=== PATIENT | female | born 1940 | race Caucasian/White ===

== ENCOUNTER 2016-11-01 10:51 | Observation (INO) | payer OTHER ==
--- NOTE | 2016-11-01 11:54 | EDPHY ---
H & P Time Seen by Provider: 11/01/16 11:54 HPI/ROS: Chief complaint. Rule out meningitis HPI. Patient is a 75-year-old female referred from [place]. The about 1 week ago she started having neck pain after looking down reading a book for most of the day. Her neck pain was on the right side of her neck. She had no focus weakness or paresthesias. She had no headache or fever. She went to [facility] and they found the patient had a sodium of a about 115. She has been in the hospital the past 3 days and sodium has improved. She has had a negative head CT. MRI of her neck shows extensive DJD. Today she had a chest CT which showed no evidence of pulmonary embolus. She tells me she has had some unusual shortness of breath and cough but no fever. Apparently she had a urinary tract infection there as well. ROS Constitutional. Generalized weakness Eyes. no problems with vision ENT. no sore throat, no nasal drainage Cardiovascular. no chest pain Respiratory. Shortness of breath and cough Abdominal. no abdominal pain, no nausea/vomiting, no diarrhea . no problems urinating MS. no calf pain/swelling, no neck/back pain, no joint pain Skin. no rash Lymph. no swollen glands Neuro. Difficulty walking secondary to her shortness of breath Past Medical/Surgical History: Past medical history is significant for hypertension, hypothyroid hysterectomy, elbow surgery Social History: , nonsmoker, no alcohol Smoking Status: Never smoked Physical Exam: General Appearance: Alert well-developed female mild distress vital signs are stable Eyes: Pupils equal and round no pallor or injection. ENT, Mouth: Mucous membranes are moist. Respiratory: No retractions. Rales left lower lung base Cardiovascular: Regular rate and rhythm. Gastrointestinal: Abdomen is soft and nontender, no masses, bowel sounds normal. Neurological: Awake and alert, sensory and motor exams grossly normal. Skin: Warm and dry, no rashes. Musculoskeletal: Neck is supple with slight tenderness to the right paracervical muscles. No meningismus. Extremities symmetrical, full range of motion. Psychiatric: Patient is oriented X 3, there is no agitation. Constitutional: Initial Vital Signs Temperature (C) 36.7 C 11/01/16 10:51 Heart Rate 98 11/01/16 10:51 Respiratory Rate 18 11/01/16 10:51 Blood Pressure 175/93 H 11/01/16 10:51 O2 Sat (%) 93 11/01/16 10:51 O2 Delivery Mode Room Air O2 (L/minute) 2 Allergies/Adverse Reactions: codeine Allergy (Verified 11/01/16 13:57) Sulfa (Sulfonamide Antibiotics) Allergy (Verified 11/01/16 13:57) Medical Decision Making - Diagnostics EKG Interpretation: EKG interpreted by me shows normal sinus rhythm with normal interval and left axis deviation. There is also LVH by voltage. No significant ST elevation or depression. No arrhythmia. The rate is 83 Imaging Results: Imaging Impressions Chest X-Ray 11/01/16 12:11 Impression: 1. Left lower lobe pneumonia. 2. Small bilateral pleural effusions. 3. Recommend follow up until clear. Chest x-ray interpreted by me shows a left lower lobe pneumonia with small pleural effusions bilateral Procedures: IV Rocephin, Zithromax ED Course/Re-evaluation: Patient's sodium has improved to 134. Patient is found to have pneumonia. Patient and I discussed treatment plan including recommendation for admission. She expresses understanding and agreement I have consulted and discussed case with Dr. Miller, hospitalist, who will see the patient in the emergency department Patient has had septic workup with negative lactate. Her cultures have been obtained and following cultures she is given intravenous antibiotics. Differential Diagnosis: Patient has no symptoms or signs of meningitis. She has pneumonia which goes along with her shortness of breath and cough. We have not yet obtained a urine sample from her. Her hyponatremia has improved This would appear to be a community-acquired pneumonia - Data Points Laboratory Results: Laboratory Results 11/01/16 12:45 11/01/16 11:50 11/01/16 11/01/16 11/01/16 14:00 12:45 12:45 WBC 15.78 10^3/uL H 10^3/uL (3.80-9.50) RBC 3.95 10^6/uL L 10^6/uL (4.18-5.33) Hgb 11.9 g/dL L g/dL (12.6-16.3) Hct 34.4 % L % (38.0-47.0) MCV 87.1 fL fL (81.5-99.8) MCH 30.1 pg pg (27.9-34.1) MCHC 34.6 g/dL g/dL (32.4-36.7) RDW 13.3 % % (11.5-15.2) Plt Count 332 10^3/uL 10^3/uL (150-400) MPV 9.9 fL fL (8.7-11.7) Neut % (Auto) 91.6 % H % (39.3-74.2) Lymph % (Auto) 6.2 % L % (15.0-45.0) [place] % (Auto) 1.3 % L % (4.5-13.0) Eos % (Auto) 0.0 % L % (0.6-7.6) Baso % (Auto) 0.1 % L % (0.3-1.7) Nucleat RBC Rel Count 0.0 % % (0.0-0.2) Absolute Neuts (auto) 14.45 10^3/uL H 10^3/uL (1.70-6.50) Absolute Lymphs (auto) 0.98 10^3/uL L 10^3/uL (1.00-3.00) Absolute Monos (auto) 0.21 10^3/uL L 10^3/uL (0.30-0.80) Absolute Eos (auto) 0.00 10^3/uL L 10^3/uL (0.03-0.40) Absolute Basos (auto) 0.01 10^3/uL L 10^3/uL (0.02-0.10) Absolute Nucleated RBC 0.00 10^3/uL 10^3/uL (0-0.01) Immature Gran % 0.8 % % (0.0-1.1) Immature Gran # 0.13 10^3/uL H 10^3/uL (0.00-0.10) PT 13.4 SEC SEC (12.0-15.0) INR 1.03 (0.83-1.16) APTT 21.9 SEC L SEC (23.0-38.0) VBG Lactic Acid Sodium Potassium Chloride Carbon Dioxide Anion Gap BUN Creatinine Estimated GFR Glucose Calcium Total Bilirubin Troponin I NT-Pro-B Natriuret Pep Urine Color Pending Urine Appearance Pending Urine pH Pending Ur Specific [place] Pending Urine Protein Pending Urine Ketones Pending Urine Blood Pending Urine Nitrate Pending Urine Bilirubin Pending Urine Urobilinogen Pending Ur Leukocyte Esterase Pending Urine Glucose Pending 11/01/16 11/01/16 12:45 11:50 WBC RBC Hgb Hct MCV MCH MCHC RDW Plt Count MPV Neut % (Auto) Lymph % (Auto) [place] % (Auto) Eos % (Auto) Baso % (Auto) Nucleat RBC Rel Count Absolute Neuts (auto) Absolute Lymphs (auto) Absolute Monos (auto) Absolute Eos (auto) Absolute Basos (auto) Absolute Nucleated RBC Immature Gran % Immature Gran # PT INR APTT VBG Lactic Acid 1.3 mmol/L mmol/L (0.7-2.1) Sodium 133 mEq/L L mEq/L (134-144) Potassium 3.6 mEq/L mEq/L (3.5-5.2) Chloride 101 mEq/L mEq/L (97-110) Carbon Dioxide 21 mEq/l L mEq/l (22-31) Anion Gap 11 mEq/L mEq/L (8-16) BUN 9 mg/dL mg/dL (7-23) Creatinine 0.7 mg/dL mg/dL (0.6-1.0) Estimated GFR > 60 Glucose 131 mg/dL H mg/dL (70-100) Calcium 9.2 mg/dL mg/dL (8.5-10.4) Total Bilirubin 0.7 mg/dL mg/dL (0.1-1.4) Troponin I < 0.012 ng/mL ng/mL (0-0.034) NT-Pro-B Natriuret Pep 2620 pg/mL H pg/mL (0-450) Urine Color Urine Appearance Urine pH Ur Specific [place] Urine Protein Urine Ketones Urine Blood Urine Nitrate Urine Bilirubin Urine Urobilinogen Ur Leukocyte Esterase Urine Glucose Departure - Departure Disposition: [facility] Acute Clinical Impression: Pneumonia Qualifiers: Pneumonia type: due to unspecified organism Laterality: left Lung location: lower lobe of lung Qualified Code(s): J18.1 - Lobar pneumonia, unspecified organism Condition: Fair Referrals: Patient,NotPresent [Unknown] - As per Instructions
[2016-11-01 13:03] LABS: % IMMATURE GRANULYOCYTES 0.8 % (0.0-1.1); ABSOLUTE IMMATURE GRANULOCYTES 0.13 10^3/uL (0.00-0.10); ADD DIFF? NO; ADD MORPH? NO; ADD SCAN? NO; ATYPICAL LYMPHOCYTE FLAG 0 (0-99); FRAGMENT RBC FLAG 0 (0-99); HEMATOCRIT 34.4 % (38.0-47.0); HEMOGLOBIN 11.9 g/dL (12.6-16.3); LEFT SHIFT FLG 10 (0-99); LIPEMIA HEMOLYSIS FLAG 90 (0-99); MEAN CELL HEMOGLOBIN 30.1 pg (27.9-34.1); MEAN CELL HEMOGLOBIN CONCENTR. 34.6 g/dL (32.4-36.7); MEAN CELL VOLUME 87.1 fL (81.5-99.8); MEAN PLATELET VOLUME 9.9 fL (8.7-11.7); PLATELET CLUMPS FLAG 0 (0-99); PLATELET COUNT 332 10^3/uL (150-400); RED BLOOD CELL COUNT 3.95 10^6/uL (4.18-5.33); RED CELL DISTRIBUTION WIDTH 13.3 % (11.5-15.2)
[2016-11-01 13:13] LABS: INR 1.03 (0.83-1.16); PROTIME(PATIENT) 13.4 SEC (12.0-15.0)
[2016-11-01 13:14] LABS: APTT 21.9 SEC (23.0-38.0)
[2016-11-01 13:22] LABS: ANION GAP 11 mEq/L (8-16); BILIRUBIN,TOTAL 0.7 mg/dL (0.1-1.4); CALCIUM 9.2 mg/dL (8.5-10.4); CARBON DIOXIDE 21 mEq/l (22-31); CHLORIDE 101 mEq/L (97-110); CREATININE 0.7 mg/dL (0.6-1.0); GLOMERULAR FILTRATION RATE > 60; GLUCOSE 131 mg/dL (70-100); POTASSIUM 3.6 mEq/L (3.5-5.2); SODIUM 133 mEq/L (134-144)
--- NOTE | 2016-11-01 13:23 | CPEKG ---
Heart Rate: 83 RR Interval: 723 P-R Interval: 144 QRSD Interval: 100 QT Interval: 376 QTC Interval: 442 P [place]: 66 QRS [place]: -44 T Wave [place]: 37 EKG Severity - ABNORMAL ECG - EKG Impression: SINUS RHYTHM EKG Impression: LEFT AXIS DEVIATION EKG Impression: LEFT VENTRICULAR HYPERTROPHY Electronically Signed By: Kali Peck 01-Nov-2016 16:02:09
[2016-11-01 13:34] LABS: TROPONIN I < 0.012 ng/mL (0-0.034)
[2016-11-01] MEDS ORDERED: AZITHROMYCIN IV 500 MG in D5W 250 ML IV ONE (13:58)
[2016-11-01] MEDS ORDERED: IBUPROFEN 600 MG TAB PO ONE (14:15)
[2016-11-01 14:36] LABS: COLOR YELLOW; LEUKOCYTE ESTERASE,URINE NEGATIVE (NEGATIVE); NITRITE,URINE NEGATIVE (NEGATIVE)
[2016-11-01 14:38] LABS: MUCUS TRACE /lpf (NONE-1+)
[2016-11-01] MEDS ORDERED: ONDANSETRON 4 MG/2 ML VIAL IVP PRN (17:05)
[2016-11-01] MEDS ORDERED: ONDANSETRON DISINTEGRATING 4 MG TAB PO PRN (17:05)
[2016-11-01] MEDS ORDERED: oxyCODONE IR 5 MG TAB PO PRN (17:05)
[2016-11-01] MEDS ORDERED: ACETAMINOPHEN 325 MG TAB PO PRN (17:05)
[2016-11-01] MEDS ORDERED: FUROSEMIDE 20 MG/2 ML VIAL IVP ONE (17:09)
[2016-11-01] MEDS ORDERED: hydrALAZINE 10 MG TAB PO PRN (17:12)
[2016-11-01] MEDS: LISINOPRIL 5 MG TAB PO SCH (17:54)
--- NOTE | 2016-11-01 18:44 | GHP ---
[f rep st] HISTORY AND PHYSICAL DATE OF ADMISSION: 11/01/2016 CHIEF COMPLAINT: Neck pain. HISTORY OF PRESENT ILLNESS: The patient is a 75-year-old female with a history of hypothyroidism, h yperlipidemia, and lower extremity edema, who presents to the Emergency Department as a transfer fro [facility] due to uncontrolled neck pain. She was initially evaluated by her outpa tient primary care physician at [place], and was noted to have ataxia. Labs revealed hyponatremi a with a sodium of 115, and she was admitted to the hospital. Her sodium was corrected to 133 over the past several days, and her gait disturbance has resolved. MRI was obtained to further assess he r neck pain, and revealed multilevel cervical spondylosis with severe right foraminal stenosis at C4 through C6. She required multiple doses of IV opioids for pain control. There was initially some consideration of meningitis, though per review of records in [place] there has been no meningismu s, no fevers, no significant headaches. She did receive quite a bit of IV fluids per the report of the attending physician at [place], as they were aggressively treating her low sodium with IV flu ids. She then desatted to 88% on room air prior to transfer, and a CT pulmonary angiogram was obtai marie, which was negative for pulmonary embolism. It did, however, show bilateral pleural effusions a nd some scattered ground-glass opacities. Given ongoing neck pain, she is transferred to [facility] for further evaluation and consideration of neurosurgical consultation[facility]-ray was suggestive of a left lower lobe pneumonia. She received ceftriax one and azithromycin, is admitted to the hospital for further management. The patient denies any fevers, cough, shortness of breath, chest pain, or abdominal symptoms. She d id report some urinary frequency last week, and in [place] she was diagnosed with urinary tract i nfection and treated with 3 days of IV Zosyn. Her urinary symptoms have completely resolved. She h as had no nausea or vomiting. She denies any headache. Although she has neck pain, she denies neck stiffness. She also reports a history of lower extremity edema. She vaguely endorses orthopnea, b ut denies paroxysmal nocturnal dyspnea. PAST MEDICAL HISTORY: 1. Hyperlipidemia. 2. Hypothyroidism. 3. Bilateral lower extremity edema. 4. Elevated blood pressure. 5. Degenerative disk disease of the cervical spine. PAST SURGICAL HISTORY: 1. Cataract surgery. 2. Tonsillectomy. 3. Total abdominal hysterectomy. FAMILY HISTORY: Her mom had COPD. Her father had colon cancer. Her brother has a history of hyper lipidemia and some type of heart problem. SOCIAL HISTORY: The patient is . They live in [place] part of the year, and spend their sum mers in [place]. She is a lifetime nonsmoker. She denies regular alcohol use. REVIEW OF SYSTEMS: A 10-point review of systems was performed and is negative except as per HPI. OBJECTIVE: VITAL SIGNS: Temperature is 36.6, blood pressure 180/87, heart rate 85, respiratory rat e 15, she is 95% on 2 L of oxygen. GENERAL: The patient is awake, alert, oriented, in no acute dis tress. HEENT: Head is atraumatic, normocephalic. Pupils equal, round, and reactive to light. Ext raocular muscles are intact. Conjunctiva are pink. Oropharynx is clear. Mucous membranes are mois t. NECK: Supple. Mild JVD is appreciated. No meningismus. HEART: Regular rate and rhythm witho ut murmur. LUNGS: Diminished at the bases bilaterally. Otherwise, clear to auscultation without c rackles, rales, or rhonchi. ABDOMEN: Soft, nondistended, nontender with normoactive bowel sounds. EXTREMITIES: Without cyanosis, clubbing. There is trace to 1+ bilateral lower extremity ankle darren ma. NEUROLOGIC: Grossly nonfocal. LABORATORY DATA: CBC reveals a white blood cell count of 15.8, hemoglobin 11.9, hematocrit 34.4. T here is 91.6% neutrophils INR is 1.03, lactic acid is 1.3. Complete metabolic panel is remarkable f or sodium of 133, a bicarb of 21, glucose 131. Her troponin is negative. NT proBNP is 2,620. Urin alysis shows a specific gravity greater than 1.035, trace ketones, 10-15 red cells, negative for nit rates or bacteria. DIAGNOSTIC STUDIES: EKG shows normal sinus rhythm without ST-segment or T-wave changes concerning f or ischemia. She does meet criteria for left ventricular hypertrophy. Chest x-ray in the Emergency Department here is personally reviewed and interpreted. There was some haziness over the left lower diaphragm, and is read by the radiologist as a left lower lobe pneumon ia, with small bilateral pleural effusions. I also reviewed the CT pulmonary angiogram with our rad iologist here, which was sent on CD. She does have bilateral pleural effusions with some scattered ground-glass opacities, which could be fluid. A cervical spine MRI performed at [facility] showed multilevel cervical spondylosis w ith severe right foraminal stenosis at C4 through C6, and mild spinal canal stenosis at multiple cer vical levels. ASSESSMENT/PLAN: The patient is a 75-year-old female, who is transferred to [facility] from [facility] for ongoing neck pain and concern for new onset hypoxemia. 1. Neck pain. I have low suspicion for meningitis. Although she has a leukocytosis, this is likel y related to the IV Solu-Medrol she has received for the past couple of days at [place]. She has remained afebrile throughout her hospitalization. She has no meningismus, no headaches, and overal l appears nontoxic. Blood cultures are pending. I suspect her neck pain is a result of her MRI fin [facility] with multilevel cervical spondylosis, and she is transferred here for this issue. Therefore, we will request a neurosurgical consultation, and I have asked Dr. Bolaños to see the patient in the [facility]. In the meantime, we will plan for pain control with Tylenol, ibuprofen, and p.r.n. oxycodon e as needed. We will also provide a muscle relaxer as needed, as well as heat if this is helpful. PT/OT consults are requested. 2. Acute hypoxemic respiratory failure secondary to bilateral pleural effusions. She was diagnosed and treated for pneumonia in the Emergency Department. However, I do not feel she has a pneumonia. She has no clinical symptoms such as fever, cough, chest pain, or shortness of breath. I reviewed her CT imaging and again looked at her chest x-ray with our radiologist, and this is more likely to be fluid. Specifically, I suspect she is a bit volume overloaded after aggressive IV fluids given in [place]. She does have an elevated BNP, as well as some mild lower extremity edema. We will check an echocardiogram. I will give her some IV Lasix right now. I do not see any indication for antibiotics at this time, so we will defer unless she develops more localized symptoms. At this poi nt, there is no indication for thoracentesis. 3. Leukocytosis. As above, I suspect this is secondary to steroids, as there is no evidence for on going infection. She was recently treated for urinary tract infection. The urine culture in [place] grew greater than 100,000 E. coli, which was pansensitive. She has received 3 days of Zosyn. Given her minimal symptoms prior to treatment at this point, I think 3 days is likely adequate espec ially in the setting of a negative urinalysis. 4. Elevated blood pressure. The patient was previously on hydrochlorothiazide, though we will hold this given her recent history of hyponatremia. For now, we will order low-dose lisinopril and up t itrate as necessary, as well as p.r.n. hydralazine for blood pressure control. Given her findings o f left ventricular hypertrophy on her EKG, we will proceed with echocardiogram as above. 5. Hyperlipidemia. We will continue her statin. 6. Hypothyroidism. We will continue her levothyroxine. 7. Deep venous thrombosis prophylaxis, Lovenox. 8. Code status. The patient is full code. 9. Disposition. The patient is moved to observation status. Should she require ongoing workup for hospitalization depending on her status tomorrow, we can change her to inpatient if needed. /[id number]/MODL
[2016-11-01] MEDS ORDERED: PRAVASTATIN SODIUM 40 MG TAB PO SCH (21:00)
[2016-11-01] MEDS: IBUPROFEN 600 MG TAB PO PRN (21:39)
[2016-11-01] MEDS: METHOCARBAMOL 750 MG TAB PO PRN (21:39)
[2016-11-02] MEDS: IBUPROFEN 600 MG TAB PO PRN ×2 (03:38→15:15)
[2016-11-02] MEDS: METHOCARBAMOL 750 MG TAB PO PRN ×2 (03:38→15:15)
[2016-11-02 05:07] LABS: % IMMATURE GRANULYOCYTES 0.8 % (0.0-1.1); ABSOLUTE IMMATURE GRANULOCYTES 0.12 10^3/uL (0.00-0.10); ADD DIFF? NO; ADD MORPH? NO; ADD SCAN? NO; ATYPICAL LYMPHOCYTE FLAG 0 (0-99); FRAGMENT RBC FLAG 0 (0-99); HEMATOCRIT 28.7 % (38.0-47.0); HEMOGLOBIN 10.1 g/dL (12.6-16.3); LEFT SHIFT FLG 10 (0-99); LIPEMIA HEMOLYSIS FLAG 90 (0-99); MEAN CELL HEMOGLOBIN 30.4 pg (27.9-34.1); MEAN CELL HEMOGLOBIN CONCENTR. 35.2 g/dL (32.4-36.7); MEAN CELL VOLUME 86.4 fL (81.5-99.8); MEAN PLATELET VOLUME 9.7 fL (8.7-11.7); PLATELET CLUMPS FLAG 0 (0-99); PLATELET COUNT 313 10^3/uL (150-400); RED BLOOD CELL COUNT 3.32 10^6/uL (4.18-5.33); RED CELL DISTRIBUTION WIDTH 13.4 % (11.5-15.2)
[2016-11-02 05:30] LABS: ANION GAP 8 mEq/L (8-16); CALCIUM 8.8 mg/dL (8.5-10.4); CARBON DIOXIDE 23 mEq/l (22-31); CHLORIDE 101 mEq/L (97-110); CREATININE 0.9 mg/dL (0.6-1.0); GLOMERULAR FILTRATION RATE > 60; GLUCOSE 122 mg/dL (70-100); POTASSIUM 3.5 mEq/L (3.5-5.2); SODIUM 132 mEq/L (134-144)
[2016-11-02] MEDS ORDERED: LEVOTHYROXINE 50 MCG TAB PO SCH (06:00)
[2016-11-02 07:40] VITALS: PULSE 84
--- NOTE | 2016-11-02 08:31 | GCON ---
[f rep st] CONSULTATION NEUROSURGERY CONSULT. DATE OF CONSULTATION: 11/01/2016 Patient was seen evaluated on the general care floor at [facility] approximately 7:3 0 p.m., on 11/01/2016. HISTORY OF PRESENT ILLNESS: The patient is a 75-year-old lady with a history of hypothyroidism, hyp erlipidemia, lower extremity edema, who presented as a transfer from [facility] due t o uncontrolled neck pain. She apparently developed this pain last evening when she was [employer] [place] and says she gets this kind of pain periodically but they usually resolve with some Tylenol or aspirin. The pain is only in her neck, radiates up to the skull and down to the trapezius. She has no pain at all in the arms. The pain is worse with palpation and with flexion-extension. She has no other neurologic symptoms. Of note, she also had extreme hyponatremia down to 115, which has bee n corrected to 133 recently. She supposedly had an MRI done [place] which shows severe right for aminal stenosis C4 through 6, and she had multiple doses of opioids for pain control. That MRI scan was supposedly sent here on a disc however it is nowhere to be found, when I came to see her on the floor, presumably has been sent to Radiology. Otherwise, she has no other significant complaints a t this time. REVIEW OF SYSTEMS: A 10-point review of systems is negative other than that described above in HPI. PAST MEDICAL HISTORY: 1. Hyperlipidemia. 2. Hypothyroidism. 3. Bilateral lower extremity edema. 4. Hypertension. 5. Degenerative disk disease of the cervical spine. PAST SURGICAL HISTORY: 1. Cataracts. 2. Tonsillectomy. 3. Total abdominal hysterectomy. FAMILY HISTORY: Positive for COPD in her mother and colon cancer in her father, but negative for sp ine problems. SOCIAL HISTORY: The patient is . They summer in [place] and are from [place]. She is a lifelong nonsmoker. Denies any alcohol or other drug use. ALLERGIES: No known drug allergies. MEDICATIONS: Her home medications were reviewed in the electronic medical record. I have no additi ons at this time. PHYSICAL EXAM: VITAL SIGNS: Currently she is afebrile with normal stable vital signs. GENERAL: S he is awake, alert, and oriented x3. NEURO: Her cranial nerves 2-12 are grossly normal. She has f ull 5/5 strength of the deltoid biceps, triceps, wrist flexion, extension, and finger abduction. Sh e also has full 5/5 strength in all muscle groups of the lower extremities. Her sensation is comple tely normal. Deep tendon reflexes are normal. She has no Vázquez's or Babinski and no clonus. She has pain to palpation over the paraspinous muscles of the cervical spine but no significant signs o f any radiculopathy. IMAGING REVIEW: I searched for her MRI scan but the disk was nowhere to be found, presumably has be en sent to Radiology. We will look for this in the morning. RESULTS REVIEW: White count is 15.78, hemoglobin 11.9, hematocrit is 34.4, platelet count is 332,00 0. INR is 1.03, PTT 21.9. Sodium is 133, potassium 3.6, BUN is 9, creatinine is 0.7, glucose 131. ASSESSMENT AND PLAN: The patient is a 75-year-old woman who presents with multiple medical problems , as well as neck pain. As far as I can tell, based on her physical exam, this seems to be a muscul oskeletal problem and she has pain with palpation of the paraspinous muscles, a lot of tightness in the paraspinous muscles. This could be treated easily with nonsteroidal anti-inflammatories, such a s Toradol or high-dose ibuprofen, as well as muscle relaxants and physical therapy. We will certain ly look at her MRI scan once it is available but given that she has no radicular symptoms or signs o f cord compression, there is likely no role for surgery and she tells me that she is certainly not i nterested in any kind of surgery at this moment. If her MRI does show significant facet disease she might be a candidate for facet injections to see if this would assist with her pain but really with palpation most of this appears to be muscular. I discussed this at length with the patient and we will follow up on her MRI scan tomorrow but likely no need for neurosurgical intervention or further care at this time. We will leave further recommendations after we see the MRI scan. Thanks for the kind consultation. /[id number]/MODL
--- NOTE | 2016-11-02 08:34 | NEUSURGPN ---
Assessment/Plan: Isha is a 75y/o female who was transferred to [facility] and reported low back pain. She underwent an MRI of her lower back, but unfortuantely these images are not available to review at this time. Patient this morning stated her back is doing well adn she had the best night sleep she has had in months. She denies any new leg pain, numbness, tingling or weakness. Based on her clinic course her back pain may be muscular in nature. Recommend PT /OT as tolerated. At this point there is no acute neurosurgical recommendations. When her images become available, please notify NS. Discussed with Dr. Bolaños. Subjective: Back pain improved today. No leg pain Objective: NAD A&OX3 MAEx4 09/14 and equal in BUE and BLE. - Physician Discussed Patient with Dr.: Bolaños Neurosurgery Physical Exam - Vitals, I&O, Labs I and O 11/01/16 11/02/16 11/03/16 05:59 05:59 05:59 Intake Total 610 Output Total 800 Balance -190 Weight 67.132 kg Intake: Oral (ml) 560 IV Infused (ml) 50 Output: Urine (ml) 800 Toilet 800 Other: Number of Voids Toilet 1 Vital Signs Temp Pulse Resp BP Pulse Ox 36.8 C 84 16 144/77 H 93 11/02/16 07:40 11/02/16 07:40 11/02/16 07:40 11/02/16 07:40 11/02/16 07:40 Laboratory Results 11/02/16 04:52 11/02/16 04:52 ICD10 Worksheet Patient Problems: Problems Problem Status Onset Pneumonia Acute
[2016-11-02] MEDS ORDERED: PANTOPRAZOLE SODIUM 40 MG TAB PO PRN (09:00)
[2016-11-02] MEDS ORDERED: ASPIRIN 81 MG CHEWABLE TAB PO SCH (09:00)
[2016-11-02] MEDS ORDERED: ENOXAPARIN 40 MG/0.4 ML SYR SC SCH (09:00)
[2016-11-02] MEDS ORDERED: CETIRIZINE 10 MG TAB PO PRN (09:00)
[2016-11-02] MEDS ORDERED: FUROSEMIDE 40 MG/4 ML VIAL IVP ONE (09:01)
[2016-11-02] MEDS ORDERED: BENEFIBER/NUTRISOURCE FIBER PKT 1 EACH PO SCH (09:15)
[2016-11-02] MEDS: LISINOPRIL 5 MG TAB PO SCH (10:10)
--- NOTE | 2016-11-02 10:24 | ECHO ---
[id number] + + [id number] : : [place] [id number] : : [phone] + + Adult Echocardiographic Report + ------+ :Name: Albert GEORGESpatricia Date: 11/02/2016 08:17 AM : : Hospital Admission Number: [id number] Locatio n: 354: :: 1940 Gender: Female Height: 62 in : :Age: 75 yrs Race: WH Weight: 148 lb : :Reason For Study: Eval LV Fx : : BSA: 1.7 meters 2 : :History: L/L pleural effusions, Elevated BNP : + ------+ MMode/2D Measurements \T\ Calculations IVSd: 0.88 cm LVIDd: 3.8 cm FS: 43.5 % MV Diam: 3.0 cm LVPWd: 1.1 cm LVIDs: 2.1 cm EDV(Teich): 62.1 ml ESV(Teich): 15.2 ml EF(Teich): 75.4 % Ao root diam: 2.7 cm LVOT diam: 1.8 cm ACS: 1.6 cm LVOT area: 2.5 cm2 Normal Measurement Values: + + :LVIDd (3.5-5.7cm) IVSd (0.6-1.1cm) LVPWd (0.6-1.1cm) Aortic Root (2.0-3.7cm)Left Atrium (1.5-4.0cm): :LV Vol(d) (76-115ml) LV Vol(s) (29-48ml) Ejec Fraction (50-65%)PV Trever (0.6- 1.2m/s) TV Trever (0.4-1.0m/s) : :MV E Trever (0.8-1.0m/s)MV A Trever (0.3-1.0m/s)LVOT Trever (0.7-1.2m/s) Asc Ao Trever ( 0.9-1.8m/s) : + + Doppler Measurements \T\ Calculations MV E max trever: MV V2 max: Ao mean PG: LV V1 mean P.9 cm/sec 105.9 cm/sec 2.4 mmHg 1.3 mmHg MV A max trever: MV max P.5 mmHg Ao V2 mean: LV V1 mean: 90.8 cm/sec MV V2 mean: 73.9 cm/sec 52.5 cm/sec MV E/A: 0.92 69.6 cm/sec Ao V2 VTI: 23.4 cm LV V1 VTI: MV mean P.2 mmHg 21.4 cm MV V2 VTI: 28.2 cm SOPHY(I,D): 2.3 cm2 MV area (1 diam): 7.0 cm2 MVA(VTI): 1.9 cm2 MV Flow area(1diam): 7.0 cm2 MR max trever: MR(RF 1 diam): SV(MV 1 diam): PA V2 max: 620.4 cm/sec 16.5 % 196.1 ml 80.1 cm/sec MR max PG: SI(MV 1 diam): PA max P.1 mmHg 2.6 mmHg 116.6 ml/m2 SV(LVOT): 54.5 ml TR max trever: RF(MV,Ao)(1 diam): 302.4 cm/sec 0.29 TR max PG: RF(MV,LVOT)(1diam): 36.6 mmHg 0.72 RAP systole: 5.0 mmHg RVSP(TR): 41.6 mmHg Left Ventricle The left ventricle is normal in size. There is normal left ventricular wall thickness. The left ventricular ejection fraction is normal. There is Doppler evidence for diastolic dysfunction. Ejection Fraction = 75%. The left ventricular wall motion is normal. Right Ventricle The right ventricle is normal in size and function. Atria The left atrial size is normal. Right atrial size is normal. Mitral Valve There is mild mitral annular calcification. There is no evidence of mitral valve prolapse. There is no mitral valve stenosis. There is moderate mitral regurgitation. Tricuspid Valve Normal tricuspid valve. There is mild tricuspid regurgitation. Right ventricular systolic pressure is 41mmHg. There is Doppler evidence for mild pulmonary hypertension. Aortic Valve The aortic valve is normal in structure and function. The aortic valve is trileaflet. There is no aortic stenosis. There is no aortic insufficiency. Pulmonic Valve The pulmonic valve is normal in structure and function. There is no pulmonic valvular regurgitation. Great Vessels The aortic root is normal size. Pericardium/Pleural There is no pericardial effusion. Conclusion A complete two-dimensional transthoracic echocardiogram was performed (2D, M-mode, Doppler and color flow Doppler). The left ventricular ejection fraction is normal. There is Doppler evidence for diastolic dysfunction. Ejection Fraction = 75%. The left ventricular wall motion is normal. The right ventricle is normal in size and function. The left atrial size is normal. There is mild mitral annular calcification. There is moderate mitral regurgitation. There is mild tricuspid regurgitation. Right ventricular systolic pressure is 41mmHg. There is Doppler evidence for mild pulmonary hypertension. The aortic valve is normal in structure and function. The aortic valve is trileaflet. There is no pericardial effusion. Final Reading Physician: Meredith Ferrari signed on 11/02/2016 10:24 AM Ordering Physician: Page Langley Performed By: Darrell Dueñas, CS
[2016-11-02 12:10] VITALS: BP 150/67; RESP 18; TEMP 98.7; O2SAT 94
--- NOTE | 2016-11-02 20:32 | GDS ---
[f rep st] DISCHARGE SUMMARY DISCHARGE DIAGNOSES: 1. Neck pain, which is musculoskeletal in origin. 2. Hypoxemia secondary to bilateral pleural effusions. 3. Diastolic heart failure. 4. Mitral valve regurgitation. 5. Leukocytosis secondary to IV Solu-Medrol. 6. Hypertension. 7. Hyperlipidemia. 8. Hypothyroidism. CONSULTANTS: Jah Bolaños MD, Neurosurgery IMAGING/PROCEDURES: 1. Chest x-ray showed small bilateral pleural effusions. 2. Echocardiogram showed normal ejection fraction of 75%. There was Doppler evidence for diastolic dysfunction and moderate mitral regurgitation was noted. HISTORY: For details, please see dictated History and Physical dated November 01, 2016. 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 Evaluation in the emergency department was suggestive of pneumonia. H owever, she was afebrile, has no cough or other pneumonia symptoms. She was admitted to the [facility] for further evaluation of her neck pain and management of her hypoxemia related to her bilateral p leural effusions. HOSPITAL COURSE: The patient was admitted to the medical-surgical unit. Neurosurgery consult was o btained. They reviewed her neck MRI. She had no radicular findings on exam and furthermore, her ex am is consistent with a musculoskeletal source of her neck pain. No surgical intervention was recom mended by Neurosurgery. Rather, she can be treated with anti-inflammatories, muscle relaxers and he at as needed. Her pain is significantly improved today. With respect to her hypoxemia, this is secondary to bilateral pleural effusions. Her echocardiogram did show diastolic dysfunction. Per discussion with her transferring physician, it sounds like she received several days of IV saline. This likely contributed to some volume overload. I reviewed h er CT scan with our radiologist here and she did have some scattered ground-glass opacities, which I suspect are fluid related. She received 2 days of IV Lasix and we were able to wean her off oxygen ; she is 93% on room air on the day of discharge. I do think she would benefit from a short duratio n of ongoing diuresis and she is given a short course of low-dose oral Lasix. Given her recent hist ory of hyponatremia, she will need to have a basic metabolic panel checked on Saturday at her primary care physician's office to ensure her sodium is stable. I also recommend she be referred to [facility] for ongoing surveillance of her mitral valve disease and diastolic dysfunction. Both of these l ikely put her at risk for volume overload issues. 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 Overall, there wa s no evidence of infection. She apparently had a urinary tract infection with greater than 100,000 E coli which was escobar sensitiv e. She completed 3 days of Zosyn in [place]. Given her minimal symptoms prior to this diagnosis , I think 3 days is likely adequate treatment. Her urinalysis here is negative. I do note her leuk ocytosis is likely secondary to IV Solu-Medrol use prior to admission. She has had no fevers or foc al infectious symptoms, overall her condition is stable at time of discharge. She was also found to have elevated blood pressures. She had previously been treated with hydrochlo rothiazide; this was discontinued due to dizziness. She is started on lisinopril here and her blood pressures is improved at discharge. I will continue her on low dose of lisinopril at discharge. DISPOSITION: Patient is discharged home in stable condition. DISCHARGE MEDICATIONS: Please see [facility] for complete updated outpatient medication list. New me dications on discharge include 1. Ibuprofen 600 mg p.o. q.8 hours p.r.n., #30, no refills. 2. Robaxin 750 mg p.o. three times daily p.r.n., #30, no refills. 3. Lisinopril 2.5 mg p.o. daily, #30, no refills. 4. Lasix 20 mg p.o. twice daily, #10, no refills. 5. She will continue all other medications as prescribed except hydrochlorothiazide, which was disc ontinued. FOLLOWUP: 1. The patient will follow up with her primary care physician, Dr. Suzi Mistry, on Saturday for repe at basic metabolic panel and recheck her oxygenation. 2. I also recommend she be referred to outpatient Cardiology for followup on her mitral regurgitati on and diastolic heart dysfunction. /[id number]/MODL
== END 2016-11-02 16:21 | disposition home or self-care (01) ==
LOC: INTOOBSV 14:10 → F3N 14:58
PROVIDERS: ADMIT Family Medicine; ATTEND Family Medicine
DX: M47.812 Spondylosis without myelopathy or radiculopathy, cervical region (principal); J90 Pleural effusion, not elsewhere classified; I11.0 Hypertensive heart disease with heart failure; I50.30 Unspecified diastolic (congestive) heart failure; I34.0 Nonrheumatic mitral (valve) insufficiency; E78.5 Hyperlipidemia, unspecified; E03.9 Hypothyroidism, unspecified; J96.01 Acute respiratory failure with hypoxia
CPT/HCPCS: 71020; 93005; 93306; 96365; 96375; 97161; 97165; 99285; G0378; G8978; G8979; G8980; G8987; G8988; G8989; J0456; J0696; J1650; J1940